=== PATIENT | female | born 1935 | race Caucasian/White ===

== ENCOUNTER → 2019-08-14 | Day surgery (SDC) | payer OTHER ==
[~2019-08-14] VITALS: Ht 152.4 cm; Wt 50.3 kg
[~2019-08-14] MED LIST: ARICEPT 5 MG TAB5 MG PO; CALCIUM 600 +1 EAC7 PO; FLAX SEED OIL1000 MG PO; HAIR, SKIN & N1 EAC3 PO; LEVOXYL25 MCG PO; LITE COAT ASPI325 MG PO; LORCET 5-325 M1 EACH PO; LOVASTATIN 20 M20 MG PO; MAGNESIUM250 M1 PO; MIRALAX17 GM PO; OMEPRAZOLE40 MG PO; STOOL SOFTENER100 M1 PO; TURMERIC500 M2 PO; VITAMIN D-32000 UNIT PO; ZANAFLEX2 M1 PO
--- NOTE | ~2019-08-14 | O ---
[facility] [place] [address] [place] [address] OPERATIVE REPORT Name: LORIE MARTINEZ Room #: REG [facility].#: [id number] Admission: 08/14/19 Attend Phys: Micah Aragon MD Discharge: Date of : 31 Report #: [id number] THIS REPORT FOR: //name// CC: Micah LOCK PREOPERATIVE DIAGNOSIS: Symptomatic left inguinal hernia. POSTOPERATIVE DIAGNOSIS: Left direct inguinal hernia. SURGEON: Micah Aragon MD ANESTHESIA: General anesthesia. COMPLICATIONS: None. ESTIMATED BLOOD LOSS: 5 mL. PROCEDURE NOTE: With the patient under general anesthesia, abdomen was prepped and draped in sterile fashion. Timeout was performed. IV antibiotic was administered. Prior to the prepping of the abdomen, the Ludwig catheter was placed. A 2 cm incision was made adjacent to the umbilicus on the left side. Transverse incision was made. The fascia was then identified over the rectus muscle. The anterior fascia was incised transversely. The muscle was spread along the length of its fiber. The space between the muscle and the posterior sheath was dissected without difficulty inferiorly. A balloon trocar was placed through the space. The CO2 was administered. Pressure was set at 12. A 5 mm trocar was placed into the properitoneal space under visualization. The trocar was about 2 inches below the umbilicus. The cautery and blunt dissection were used to free the properitoneal space. The right side lower midline was freed up. A second 5 mm trocar was placed about 2 inches below the initial 5 mm trocar. Dissection was then carried out. The inferior epigastric vessel was identified, preserved from harm. The lateral wall was opened up. The round ligament was identified. I can see the peritoneal reflection on the round ligament. The peritoneal reflection was further brought off of the round ligament. No indirect hernia sac identified. An obvious protrusion into the floor of the canal was identified. This is a direct defect. The fatty tissue that is pushed up into the wall was pulled and reduced. After this was done, the defect in the direct defect was visualized and it went down an ankle. No bleeding was identified. The properitoneal space was completely opened up. The Rolly's ligament was freed up. A large 3DMax lightweight left sided mesh was then placed. This was placed through the 11 mm trocar. This opened up well and placed into position. Mesh was tacked laterally to the abdominal wall and then inferomedially to Rolly's ligament, superomedially to the rectus. The mesh seated well. CO2 was evacuated. Trocar was removed. The fascial defect adjacent to the umbilicus was closed with [id number] 0 Vicryl x 2. Skin [address] [address] OPERATIVE REPORT Name: LORIE MARTINEZ Room #: REG [facility] M.R.#: [id number] Admission: 08/14/19 Attend Phys: Micah Aragon MD Discharge: Date of : 31 Report #: [id number] was irrigated. Skin was closed with 5-0 PDS. Steri-Strip, Band-Aids applied. The patient tolerated the procedure well. By: [id number] Micah Aragon MD /nt
--- NOTE | ~2019-08-14 | H ---
[facility] [place] [address] HISTORY AND PHYSICAL Name: LORIE MARTINEZ Room #: PRE [facility]#: [id number] Admission: Attend Phys: Micah Aragon MD Discharge: Date of : 31 Report #: [id number] THIS REPORT FOR: //name// CC: Micah LOCK PREOPERATIVE DIAGNOSIS: Symptomatic left inguinal hernia. HISTORY OF PRESENT ILLNESS: The patient is an 84-year-old who was seen in the office for a symptomatic left inguinal hernia. The patient noticed the hernia about a year ago. It was small when she first noticed it, but now has gotten bigger. The patient is complaining of stinging type pain in the left groin. This is also more uncomfortable. No prior surgery for hernia. She does have a history of constipation, which she takes MiraLax for. Her bowels are working well. There is family history of hernias. Daughter had bilateral inguinal hernia at age 4. Grandson had bilateral inguinal hernia at also age 4-5. The patient has had some episodes of nausea associated with dizziness. The patient actually had an episode where her heart rate was rapid. The patient was checked out, found to be dehydrated. The hernia at that point was not large, like this. The patient is quite active, going to the gym every day. 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 The patient is seen in the office and confirmed to have an inguinal hernia on the left. The patient is brought in for repair. PAST MEDICAL HISTORY: She has high cholesterol and history of carotid stenosis. No history of stroke. No history of heart disease. No history of high blood pressure. No history of diabetes. No history of liver or kidney disease. MEDICATIONS: ____ 40 mg daily, omeprazole 40 mg daily, levothyroxine 0.5 daily, ____ and aspirin. ALLERGIES: She is not allergic to anything. PAST SURGICAL HISTORY: Hemorrhoidectomy in 1974. FAMILY HISTORY: Siblings with heart attacks. Father had heart attack at age 79. High blood pressure and elevated cholesterol runs in the family. SOCIAL HISTORY: The patient does not smoke, occasionally drinks. REVIEW OF SYSTEMS: No chest pain, shortness of breath or palpitation. PHYSICAL EXAMINATION: GENERAL: The patient is a thin female who is not in acute distress. Awake, the patient is alert and oriented. NECK: Soft and supple, no masses. Oropharynx clear. HEENT: Pupils react to light. Extraocular muscles are intact. [facility] [address] [place] [address] HISTORY AND PHYSICAL Name: LORIE MARTINEZ Room #: [facility].#: [id number] Admission: Attend Phys: Micah Aragon MD Discharge: Date of : 31 Report #: [id number] LUNGS: Clear to auscultation. HEART: Regular rate and rhythm. No murmur or gallop. Normal S1, S2. ABDOMEN: Soft, nondistended, nontender. No mass. No ascites. The patient does have a left inguinal hernia, which is fairly good size for a female. It is reducible. No hernia on the right side. EXTREMITIES: No cyanosis, clubbing or edema. IMPRESSION: The patient is an 84-year-old with a symptomatic hernia causing stinging-type pains. Hernia is also getting larger over the last year. The patient is recommended to have this repaired. This procedure was discussed in detail. Risk of bleeding, infection, mesh infection, hernia recurrence was discussed. These are all low risk. The patient understands the procedure and wishes to proceed. By: [id number] Micah Aragon MD /nt
[2019-08-14 09:04] LABS: HEMATOCRIT 33.6 % (37.0-47.0); HEMOGLOBIN 11.1 gm/dL (12.0-15.0)
[2019-08-14 09:34] VITALS: BP 137/51
[2019-08-14 12:06] VITALS: BP 137/51
--- NOTE | 2019-08-14 16:27 | EKG ---
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
== END | disposition home or self-care (01) ==
LOC: EDBD → OR 08:21
PROVIDERS: Surgery
DX: K40.90 Unilateral inguinal hernia, without obstruction or gangrene, not specified as recurrent (principal); I10 Essential (primary) hypertension; E78.5 Hyperlipidemia, unspecified; K21.9 Gastro-esophageal reflux disease without esophagitis; E78.00 Pure hypercholesterolemia, unspecified; Z98.41 Cataract extraction status, right eye; Z98.42 Cataract extraction status, left eye; Z87.19 Personal history of other diseases of the digestive system; Z98.890 Other specified postprocedural states; Z79.899 Other long term (current) drug therapy
CPT/HCPCS: 50010; 50101; 50249; 50411; 50455; 50507; 50555; 50848; 53065; 53307; 56525; 56526; 56719; 62110; 62900; 70005